=== PATIENT | female | born 1950 | race Asian ===

== ENCOUNTER 2016-09-15 23:55 | Emergency (ER) | payer MEDICARE ==
[~2016-09-15] VITALS: Ht 165.1 cm; Wt 54.5 kg
[2016-09-16] MEDS ORDERED: ALPR0.25 PO (00:40)
[2016-09-16] MEDS ORDERED: LISI5TAB7 PO (00:40)
[2016-09-16] MEDS ORDERED: ASPIRIN 81 MG TABLET CHEW ONE (00:50)
[2016-09-16] MEDS ORDERED: NITROGLYCERIN SINGLE TAB 0.4 MG SL ONE (00:50)
[2016-09-16] MEDS ORDERED: NITROGLYCERIN SINGLE TAB 0.4 MG SL PRN (01:00)
[2016-09-16] MEDS ORDERED: SODIUM CHLORIDE FLUSH 10ML SYR IVF ONE (01:00)
[2016-09-16] MEDS ORDERED: ASPIRIN 81 MG TABLET CHEW PO ONE (01:00)
[2016-09-16 01:16] LABS: BLOOD UREA NITROGEN 14 mg/dL (7-18)
[2016-09-16 01:21] LABS: ASPARTATE AMINO TRANSFERASE 79 U/L (15-37)
[2016-09-16 01:22] LABS: IS PT STATUS REG ER OR PRE ER? YES
[2016-09-16 03:15] VITALS: BP 134/89
== END 2016-09-16 03:17 | disposition home or self-care (01) ==
LOC: ED 23:59
DX: R07.89 Other chest pain (principal); R06.00 Dyspnea, unspecified; F41.1 Generalized anxiety disorder; I10 Essential (primary) hypertension
CPT/HCPCS: 36415; 71010; 80053; 84484; 85025; 93005